=== PATIENT | male | born 1985 | race Caucasian/White ===

== ENCOUNTER 2017-04-06 13:44 | Emergency (ER) | payer MEDICAID ==
[~2017-04-06] VITALS: Ht 170.2 cm; Wt 104.0 kg
[~2017-04-06 13:44] MED LIST: FOLI-43 PO; GABA-531 PO; LEVVL SUBCUT; METF500T4 PO; METO50TA5 PO
[2017-04-06 15:21] LABS: BASOPHILS % 2.6 % (0.0-2.0); EOSINOPHILS % 3.1 % (0.0-5.0); HEMATOCRIT. 45.5 % (42.0-52.0); HEMOGLOBIN. 15.5 g/dL (14.0-18.0); LYMPHOCYTES % 22.7 % (20.0-50.0); MEAN CORPUSCULAR HEMOGLOBIN 28.4 pg (28.0-32.0); MEAN CORPUSCULAR VOLUME 83.2 fL (80.0-94.0); MEAN PLATELET VOLUME 8.2 fl (7.4-10.4); MONOCYTES % 8.1 % (2.0-8.0); NEUTROPHILS % 63.5 % (40.0-76.0); PLATELET 169 x1000/uL (130-400); RED BLOOD CELL COUNT 5.48 mill/uL (4.7-6.1); RED CELL DISTRIBUTION WIDTH 16.1 % (11.6-14.6)
[2017-04-06 15:25] LABS: INR 1.1; PROTHROMBIN TIME 11.6 sec (9.4-11.6)
[2017-04-06] MEDS ORDERED: MAGNESIUM/ALUMINUM HYDROXIDE/SIMETHICONE 30ML UDC PO ONE (15:30)
[2017-04-06 15:36] LABS: CARBON DIOXIDE 25 mEq/L (21-32); CHLORIDE 97 mEq/L (98-107); TROPONIN I < 0.02 ng/mL (0.00-0.04)
[2017-04-06] MEDS ORDERED: KETOROLAC 30MG/ML VIAL IV ONE (16:00)
[2017-04-06 18:50] VITALS: BP 153/93
== END 2017-04-06 18:52 | disposition home or self-care (01) ==
LOC: ER 14:09 → CANRESERV 15:21 → ENRESERV 15:21 → CANBEDREQ 18:50 → ER 18:52
DX: R07.89 Other chest pain (principal); E11.65 Type 2 diabetes mellitus with hyperglycemia; I10 Essential (primary) hypertension; F17.210 Nicotine dependence, cigarettes, uncomplicated; F12.10 Cannabis abuse, uncomplicated; R00.0 Tachycardia, unspecified; Z79.4 Long term (current) use of insulin; Z71.6 Tobacco abuse counseling; F10.21 Alcohol dependence, in remission
CPT/HCPCS: 36415; 71010; 80053; 83880; 84484; 85025; 85610; 93005; 96374; 99285; 99406; J1885